=== PATIENT | male | born 1980 ===

== ENCOUNTER → 2025-02-15 | Day surgery (SDC) | payer SELFPAY ==
[~2025-02-15] MED LIST: Acetaminophen 325 MG TAB PO SCH; Boostrix 0.5 ML (Tdap) VIAL (>/=7 yrs of age) ONE; CEFAZOLIN 2 GM VIAL ONE; Dextrose 50% Abboject 50 ML SYRINGE SLOW IVP PRN; Gabapentin 300 MG CAP PO SCH; Glucagon 1 MG/ML KIT IM PRN; HYDROcodone/Acetaminophen 5/325 mg Tablet ONE; Ondansetron PF 4 MG/2 ML Vial IVP PRN; Ondansetron PF 4 MG/2 ML Vial ONE; PROPOFOL 20 ML ONE; SUCCINYLCHOLINE/SOD CL,ISO/PF 200 MG/10 ML SYRINGE FS ONE; TETANUS, DIPHTHERIA TOX,ADULT (TDVAX) 0.5 ML VIAL IM ONE; fentaNYL PF 100 MCG/2 ML SYRINGE ONE; oxyCODONE 5 MG TAB PO PRN
[2025-02-15 11:50] LABS: #Basophils 0.05 10x3/uL (0.0-0.2); #Eosinophils 0.72 10x3/uL (0.0-0.7); #Monocytes 0.94 10x3/uL (0.11-0.59); #Neutrophils 5.24 10x3/uL (1.40-6.50); %Basophils 0.5 % (0.0-1.0); %Eosinophils 6.5 % (0.0-10.0); %Lymphocytes 36.6 % (21.0-51.0); %Monocytes 8.5 % (0.0-10.0); %Neutrophils 47.4 % (42.0-75.0); Hematocrit 41.1 % (42.0-52.0); Hemoglobin 13.6 g/dL (14.0-18.0); Mean Corpuscular Hemoglobin 31.3 pg (27.0-31.0); Mean Corpuscular Volume 94.5 fL (78.0-98.0); Platelet Count 125 10x3/uL (130-400); Red Blood Cell (RBC) Count 4.35 mill/uL (4.70-6.10); White Blood Cell (WBC) Count 11.06 10x3/uL (4.8-10.8)
[2025-02-15 12:11] LABS: ALT (SGPT) 33 U/L (Less than 45); AST (SGOT) 26 U/L (11-34); Albumin 3.8 g/dL (3.1-4.5); Alkaline Phosphatase 85 U/L (40-110); Anion Gap 8 mmol/L (10-20); BUN (Urea Nitrogen) 22 mg/dL (8.9-20.6); Bilirubin, Total 0.5 mg/dL (0.3-1.2); Calc. Creatinine Clearance 0 mL/min (70-130); Calcium 9.1 mg/dL (7.8-10.44); Carbon Dioxide 26 mmol/L (22-29); Chloride 107 mmol/L (98-107); Globulin 3.6 g/dL (2.4-3.5); Glucose 158 mg/dL (70-105); Potassium 3.4 mmol/L (3.5-5.1); Sodium 138 mmol/L (136-145)
== END | disposition home or self-care (01) ==
LOC: ERS 11:27 → SDC 12:13
PROVIDERS: ATTEND Colon & Rectal Surgery
DX: S51.811A Laceration without foreign body of right forearm, initial encounter (principal); X58.XXXA Exposure to other specified factors, initial encounter
CPT/HCPCS: 12002; 36415; 80053; 85025; 86850; 86900; 86901; 90471; 90715; 96374; 96375; G0390; J0169; J0665; J1100; J2704; J3010